=== PATIENT | female | born 1990 | race Caucasian/White ===

== ENCOUNTER 2017-07-27 15:49 | Emergency (ER) | payer OTHER ==
--- NOTE | 2017-07-27 16:21 | EDPHY ---
H & P Stated Complaint: RUQ ABD PAIN/N/V/D Source: Patient Exam Limitations: No limitations - Personal History LMP (Females 10-55): 15-21 Days Ago Current Tetanus/Diphtheria Vaccine: Unsure - Medical/Surgical History Hx Asthma: No Hx Chronic Respiratory Disease: No Hx Diabetes: No Hx Cardiac Disease: No Hx Renal Disease: No Hx Cirrhosis: No Hx Alcoholism: No Hx HIV/AIDS: No Hx Splenectomy or Spleen Trauma: No Other PMH: DENIES - Social History Smoking Status: Never smoked Time Seen by Provider: 07/27/17 16:20 HPI/ROS: HPI: This is a 26-year-old female who presents with Chief Complaint: RUQ ABD PAIN/N/V/D Location: Right upper quadrant and right lower quadrant abdomen Quality: Pain Duration: Since yesterday evening Signs and Symptoms: no fever, + nausea, + vomiting, no hematemesis, no blood in stool, no abdominal bloating, + diarrhea, no back pain, no urinary symptoms, no vaginal bleeding/discharge, no indigestion, no chest pain, no shortness of breath Timing: Acute, intermittent episodes Severity: Moderate Context: Patient has a history of indigestion for which she normally takes Tums presents to the emergency room with complaints of sudden onset of epigastric and right upper quadrant pain last night accompanied by burning up into her throat and nausea. She reports that this morning the right upper quadrant pain became constant with numerous bouts of vomiting of stomach contents and now has turned into bile colored liquid. She also complains of right lower quadrant pain. Nothing makes the symptoms better. Friend at bedside reports that she has been dealing with indigestion and nausea since April. Patient has not been able to keep any food or liquid down today. LMP 2-3 weeks ago. She did have 2 bouts of loose stool today; denies hematemesis Or blood in stool. She is not concerned about any food borne illness and no recent antibiotic use. Modifying Factors: None Comment: ROS: see HPI Constitutional: No fever, no chills, no weight loss Eyes: No blurred vision Respiratory: No shortness of breath, no cough Cardiovascular: No chest pain, no palpitations Gastrointestinal: + nausea, + vomiting, + diarrhea, no hematemesis, no blood in stool Genitourinary: No dysuria, no blood in urine Extremities: No myalgias, no edema Neurologic: No weakness, no numbness Skin: No rashes, no petechiae Hematologic: No bruising, no bleeding MEDICAL/SURGICAL/SOCIAL HISTORY: Medical history: Generally healthy. Does not take any regular medications. Surgical history: Denies Social history: Employed. CONSTITUTIONAL: Ill but nontoxic-appearing adult white female, awake and alert , no obvious distress HEENT: Atraumatic and normocephalic, PERRL, EOMI. Tympanic membranes clear. Oropharynx clear, no exudate and moist pink mucosa. Airway patent. No lymphadenopathy. No meningismus. Cardiovascular: Normal S1/S2, tachycardia, regular rhythm, without murmur rub or gallop. PULMONARY/CHEST: Symmetrical and nontender. Clear to auscultation bilaterally. Good air movement. No accessory muscle usage. ABDOMEN: Soft, nondistended, right upper quadrant and right lower quadrant tenderness, no rebound, no guarding, no peritoneal signs, no masses or organomegaly. No CVAT. EXTREMITIES: 2/2 pulses, strength 5/5, no deformities, no clubbing, no cyanosis or edema. NEUROLOGICAL: no focal neuro deficits. GCS 15. SKIN: Warm and dry, no erythema. no rash. Good capillary refill. (Cecelia Meza) Constitutional: Initial Vital Signs Temperature (C) 98.1 F 07/27/17 15:53 Heart Rate 112 H 07/27/17 15:53 Respiratory Rate 20 07/27/17 15:53 Blood Pressure 169/99 H 07/27/17 15:53 O2 Sat (%) 97 07/27/17 15:53 O2 Delivery Mode Room Air Allergies/Adverse Reactions: No Known Allergies Allergy (Unverified 07/27/17 15:52) Home Medications: Medication Instructions Recorded Adderall 10 MG (*) 07/27/17 Hydrocodone/Acetaminophen [[place] 1 each PO Q4-6PRN PRN #7 tablet 07/27/17 7.5-325 Tablet] Ondansetron Odt [Zofran Odt 4 mg 4 mg PO Q6 PRN #12 tab 07/27/17 (*)] Promethazine HCl [Phenergan 25mg 25 mg PO Q8 PRN #12 tab 07/27/17 (*)] Medical Decision Making - Diagnostics Imaging Results: Imaging Impressions Abdomen CT 07/27/17 16:24 Impression: 1. Normal CT abdomen and pelvis with contrast enhancement. 2. No CT evidence of appendicitis, abscess or bowel obstruction. Findings and recommendations discussed with Emergency Department physician, Dr. Cindy Mitchell at 1817 hour, 07/27/2017. Final report concurs with initial preliminary interpretation. Abdomen Ultrasound 07/27/17 16:24 Impression: No cholelithiasis or biliary ductal dilation. Findings and recommendations discussed with Emergency Department physician, Cecelia Meza PAC at 17:04 hour, 07/27/2017. Final report concurs with initial preliminary interpretation. ED Course/Re-evaluation: Labs, urinalysis, IV fluids, IV medications, CT abdomen and pelvis scan, right upper quadrant ultrasound ordered Suspect gastroenteritis Given 2 L normal saline, IV Zofran, IV Dilaudid upon arrival Vital signs show mild tachycardia but no fever. 1704: Called by radiologist who advised that right upper quadrant ultrasound shows no signs of acute cholecystitis/gallstones. 1723: Labs completely unremarkable. 1734: End of shift. Signed over to SHAHRZAD Leavitt pending CT A/P scan results and final disposition. This patient was seen under the supervision of my primary supervising physician. I evaluated care for this patient independently. (Cecelia Meza) Differential Diagnosis: Abdominal pain including but not limited to appendicitis, cholecystitis, gastritis and urinary tract infection. (Cecelia Meza) Other Provider: 5:35 p.m. I assumed care of the patient at this time. This was after discussing with Cecelia Meza PA-C. We discussed the patient's history of present illness, examination, work-up thus far. She is suspected gastroenteritis with the negative ultrasound. CT scan of the abdomen pelvis is pending at this time. I reviewed her laboratory studies. She has a very mild leukocytosis with no significant shift. Chemistry is unremarkable. Vital signs are within normal limits at this time. 6:[address] scan of the abdomen pelvis is unremarkable for any acute findings. I have examined the patient at this time. Her abdominal exam is benign. She has received 2 L IV fluid. Her symptoms have improved somewhat. She is not vomiting. She has had no diarrhea here in the emergency department. She has no bloody diarrhea. No recent travel, camping or stagnant water ingestion. We discussed the likelihood of gastroenteritis. We discuss controlling her symptoms with antiemetic prescriptions. We discussed clear liquid diet, advancing slowly as tolerated. She is comfortable this. In addition, I would like her to return to the emergency department 24 hr if she does not have resolution of her symptoms or sooner for any acute worsening as discussed. She is comfortable with this as well and discharged home stable condition. (Andrés Leavitt) - Data Points Laboratory Results: Laboratory Results 07/27/17 16:35 07/27/17 16:35 07/27/17 07/27/17 07/27/17 17:40 16:35 16:35 WBC RBC Hgb Hct MCV MCH MCHC RDW Plt Count MPV Neut % (Auto) Lymph % (Auto) Wirt % (Auto) Eos % (Auto) Baso % (Auto) Nucleat RBC Rel Count Absolute Neuts (auto) Absolute Lymphs (auto) Absolute Monos (auto) Absolute Eos (auto) Absolute Basos (auto) Absolute Nucleated RBC Immature Gran % Immature Gran # Sodium 142 mEq/L mEq/L (135-145) Potassium 4.5 mEq/L mEq/L (3.5-5.2) Chloride 106 mEq/L mEq/L (97-110) Carbon Dioxide 20 mEq/l L mEq/l (22-31) Anion Gap 16 mEq/L mEq/L (8-16) BUN 9 mg/dL mg/dL (7-23) Creatinine 0.8 mg/dL mg/dL (0.6-1.0) Estimated GFR > 60 Glucose 72 mg/dL mg/dL (70-100) Calcium 10.1 mg/dL mg/dL (8.5-10.4) Total Bilirubin 0.7 mg/dL mg/dL (0.1-1.4) Conjugated Bilirubin 0.5 mg/dL mg/dL (0.0-0.5) Unconjugated Bilirubin 0.2 mg/dL mg/dL (0.0-1.1) AST 22 IU/L IU/L (14-46) ALT 30 IU/L IU/L (9-52) Alkaline Phosphatase 76 IU/L IU/L (38-126) Total Protein 7.4 g/dL g/dL (6.3-8.2) Albumin 4.6 g/dL g/dL (3.5-5.0) Lipase 118 IU/L IU/L (23-300) Beta HCG, Qual NEGATIVE Urine Color YELLOW Urine Appearance CLEAR Urine pH 5.0 (5.0-7.5) Ur Specific [place] 1.013 (1.002-1.030) Urine Protein NEGATIVE (NEGATIVE) Urine Ketones TRACE H (NEGATIVE) Urine Blood NEGATIVE (NEGATIVE) Urine Nitrate NEGATIVE (NEGATIVE) Urine Bilirubin NEGATIVE (NEGATIVE) Urine Urobilinogen NEGATIVE EU EU (0.2-1.0) Ur Leukocyte Esterase NEGATIVE (NEGATIVE) Urine Glucose NEGATIVE (NEGATIVE) 07/27/17 16:35 WBC 9.97 10^3/uL H 10^3/uL (3.80-9.50) RBC 4.72 10^6/uL 10^6/uL (4.18-5.33) Hgb 14.0 g/dL g/dL (12.6-16.3) Hct 41.2 % % (38.0-47.0) MCV 87.3 fL fL (81.5-99.8) MCH 29.7 pg pg (27.9-34.1) MCHC 34.0 g/dL g/dL (32.4-36.7) RDW 12.9 % % (11.5-15.2) Plt Count 398 10^3/uL 10^3/uL (150-400) MPV 9.7 fL fL (8.7-11.7) Neut % (Auto) 65.7 % % (39.3-74.2) Lymph % (Auto) 26.9 % % (15.0-45.0) Wirt % (Auto) 5.8 % % (4.5-13.0) Eos % (Auto) 0.8 % % (0.6-7.6) Baso % (Auto) 0.4 % % (0.3-1.7) Nucleat RBC Rel Count 0.0 % % (0.0-0.2) Absolute Neuts (auto) 6.55 10^3/uL H 10^3/uL (1.70-6.50) Absolute Lymphs (auto) 2.68 10^3/uL 10^3/uL (1.00-3.00) Absolute Monos (auto) 0.58 10^3/uL 10^3/uL (0.30-0.80) Absolute Eos (auto) 0.08 10^3/uL 10^3/uL (0.03-0.40) Absolute Basos (auto) 0.04 10^3/uL 10^3/uL (0.02-0.10) Absolute Nucleated RBC 0.00 10^3/uL 10^3/uL (0-0.01) Immature Gran % 0.4 % % (0.0-1.1) Immature Gran # 0.04 10^3/uL 10^3/uL (0.00-0.10) Sodium Potassium Chloride Carbon Dioxide Anion Gap BUN Creatinine Estimated GFR Glucose Calcium Total Bilirubin Conjugated Bilirubin Unconjugated Bilirubin AST ALT Alkaline Phosphatase Total Protein Albumin Lipase Beta HCG, Qual Urine Color Urine Appearance Urine pH Ur Specific [place] Urine Protein Urine Ketones Urine Blood Urine Nitrate Urine Bilirubin Urine Urobilinogen Ur Leukocyte Esterase Urine Glucose Medications Given: Discontinued Medications Hydromorphone HCl (Dilaudid) 0.5 mg IVP EDNOW ONE Stop: 07/27/17 16:25 Last Admin: 07/27/17 16:36 Dose: 0.5 mg Sodium Chloride (Ns) 1,000 mls @ 0 mls/hr IV EDNOW ONE; Wide Open PRN Reason: Protocol Stop: 07/27/17 16:25 Last Admin: 07/27/17 16:36 Dose: 1,000 mls Sodium Chloride (Ns) 1,000 mls @ 0 mls/hr IV EDNOW ONE; Wide Open PRN Reason: Protocol Stop: 07/27/17 16:25 Last Admin: 07/27/17 16:37 Dose: 1,000 mls Ondansetron HCl (Zofran) 4 mg IVP EDNOW ONE Stop: 07/27/17 16:25 Last Admin: 07/27/17 16:36 Dose: 4 mg Departure - Departure Disposition: Home, Routine, Self-Care Clinical Impression: Gastroenteritis GERD (gastroesophageal reflux disease) Qualifiers: Esophagitis presence: without esophagitis Qualified Code(s): K21.9 - Gastro- esophageal reflux disease without esophagitis Condition: Good Instructions: Diet for Stomach Ulcers and Gastritis (ED), Gastroenteritis (ED) , Gastroesophageal Reflux Disease (ED) Additional Instructions: Consume a minimum of 8-10 glasses of water or electrolyte fluid replacement drinks that include Gatorade, Powerade, Pedialyte. Eat a bland diet for the next 48 hours and then slowly advance as tolerated. Take Zofran 1 tab every 4 hours as needed for nausea, vomiting. Return to the Emergency Room if symptoms do not resolve in the next 48-72 hours , you spike a fever > 102 F, or experience intractable abdominal pain/nausea/ vomiting. Referrals: Dari Licona [Primary Care Provider] - As per Instructions Stand Alone Forms: Work Excuse Prescriptions: Hydrocodone/Acetaminophen [[place] 7.5-325 Tablet] 1 each PO Q4-6PRN PRN #7 tablet PRN Reason: Pain, Moderate Ondansetron Odt [Zofran Odt 4 mg (*)] 4 mg PO Q6 PRN #12 tab PRN Reason: Nausea/Vomiting, Use 1st Promethazine HCl [Phenergan 25mg (*)] 25 mg PO Q8 PRN #12 tab PRN Reason: Nausea/Vomiting, Use 1st
[2017-07-27] MEDS ORDERED: NS 1,000 ML IV ONE ×2 (16:24)
[2017-07-27] MEDS ORDERED: HYDROmorphONE/DILAUDID 2 MG/ML INJ IVP ONE (16:24)
[2017-07-27] MEDS ORDERED: ONDANSETRON 4 MG/2 ML VIAL IVP ONE (16:24)
[2017-07-27] MEDS ORDERED: ONDANSETRON 4 MG/2 ML VIAL ONE (16:46)
[2017-07-27 17:03] LABS: PLATELET COUNT 398 10^3/uL (150-400)
[2017-07-27] MEDS ORDERED: IOPAMIDOL (ISOVUE-300) 100 ML BTL ONE (17:43)
[2017-07-27 18:53] VITALS: BP 123/60; PULSE 81; RESP 16; TEMP 98.2; O2SAT 96
== END 2017-07-27 18:52 | disposition home or self-care (01) ==
DX: K52.9 Noninfective gastroenteritis and colitis, unspecified (principal); K21.9 Gastro-esophageal reflux disease without esophagitis; E86.9 Volume depletion, unspecified
CPT/HCPCS: 96374; J1170; J2405; Q9967

== ENCOUNTER 2018-07-26 10:11 | Emergency (ER) | payer OTHER ==
[2018-07-26 10:26] VITALS: BP 149/84
--- NOTE | 2018-07-26 10:42 | EDPHY ---
H & P Stated Complaint: Right calf pain, red hot swollen calf Time Seen by Provider: 07/26/18 10:37 HPI/ROS: CHIEF COMPLAINT: Right calf pain HISTORY OF PRESENT ILLNESS: Patient is a 27-year-old healthy female who comes to the emergency department complaining of right calf pain and swelling. She states that it began hurting on the drive home from a ski trip on Monday. It is become gradually more painful over time. No fevers. No warmth or erythema. No trauma. She states that she did sprained her ankle slightly during the trip but has been able to ambulate without difficulty. No history of blood clotting disorders. Severity: Moderate Modifying factors: None REVIEW OF SYSTEMS: Constitutional: denies: chills, fever, recent illness, recent injury EENTM: denies: blurred vision, double vision, nose congestion Respiratory: denies: cough, shortness of breath Cardiac: denies: chest pain, irregular heart rate, lightheadedness, palpitations Gastrointestinal/Abdominal: denies: abdominal pain, diarrhea, nausea, vomiting, blood streaked stools Genitourinary: denies: dysuria, frequency, hematuria, pain Musculoskeletal: See HPI Skin: denies: lesions, rash, jaundice, bruising Neurological: denies: headache, numbness, paresthesia, tingling, dizziness, weakness Hematologic/Lymphatic: denies: blood clots, easy bleeding, easy bruising Immunologic/allergic: denies: HIV/AIDS, transplant 10 systems reviewed and negative except as noted EXAM: GENERAL: Well-appearing, well-nourished and in no acute distress. HEAD: Atraumatic, normocephalic. EYES: Pupils equal round and reactive to light, extraocular movements intact, sclera anicteric, conjunctiva are normal. ENT: TMs normal, nares patent, oropharynx clear without exudates. Moist mucous membranes. NECK: Normal range of motion, supple without lymphadenopathy or JVD. LUNGS: Breath sounds clear to auscultation bilaterally and equal. No wheezes rales or rhonchi. HEART: Regular rate and rhythm without murmurs, rubs or gallops. ABDOMEN: Soft, nontender, normoactive bowel sounds. No guarding, no rebound. No masses appreciated. BACK: No CVA tenderness, no spinal tenderness, step-offs or deformities EXTREMITIES: Right calf tenderness, negative Homans. Normal pulses and sensation. No visible swelling or edema. No thigh pain. No palpable cords. NEUROLOGICAL: Cranial nerves II through XII grossly intact. Normal speech, normal gait. 5/5 strength, normal movement in all extremities, normal sensation , normal reflexes PSYCH: Normal mood, normal affect. SKIN: Warm, dry, normal turgor, no visible rashes or lesions. Source: Patient Exam Limitations: No limitations - Personal History LMP (Females 10-55): 22-28 Days Ago Current Tetanus/Diphtheria Vaccine: No Current Tetanus Diphtheria and Acellular Pertussis (TDAP): No - Medical/Surgical History Hx Asthma: Yes Hx Chronic Respiratory Disease: No Hx Diabetes: No Hx Cardiac Disease: No Hx Renal Disease: No Hx Cirrhosis: No Hx Alcoholism: No Hx HIV/AIDS: No Hx Splenectomy or Spleen Trauma: No Other PMH: DENIES - Family History Significant Family History: No pertinent family hx - Social History Smoking Status: Never smoked Alcohol Use: None Constitutional: Initial Vital Signs Temperature (C) 37.2 C 07/26/18 10:16 Heart Rate 92 07/26/18 10:16 Respiratory Rate 17 07/26/18 10:16 Blood Pressure 149/84 H 07/26/18 10:16 O2 Sat (%) 98 07/26/18 10:16 O2 Delivery Mode Room Air Allergies/Adverse Reactions: No Known Allergies Allergy (Unverified 07/27/17 15:52) Home Medications: Medication Instructions Recorded Adderall 10 MG (*) 07/27/17 Hydrocodone/Acetaminophen [[place] 1 each PO Q4-6PRN PRN #7 tablet 07/27/17 7.5-325 Tablet] Ondansetron Odt [Zofran Odt 4 mg 4 mg PO Q6 PRN #12 tab 07/27/17 (*)] Promethazine HCl [Phenergan 25mg 25 mg PO Q8 PRN #12 tab 07/27/17 (*)] Medical Decision Making - Diagnostics Imaging: Discussed imaging studies w/ call manager Radiologist ED Course/Re-evaluation: 11:20 a.m. we discussed the ultrasound results. Patient is reassured. We discussed continued care and management of her pain and symptoms. I encouraged rest and ice. She is happy with this plan and feels safe going home. Discussed indications for returning Differential Diagnosis: Partial list of the Differential diagnosis considered include but were not limited to; DVT, contusion, muscle strain and although unlikely based on the history and physical exam, I also considered neuropathy, ischemia, infection. I discussed these differential diagnoses and the plan with the patient as well as the usual and expected course. The patient understands that the diagnosis is provisional and that in medicine we are not always correct and that further workup is often warranted. Usual and customary warnings were given. All of the patient's questions were answered. The patient was instructed to return to the emergency department should the symptoms at all worsen or return, otherwise to followup with the physician as we discussed. Departure - Departure Disposition: Home, Routine, Self-Care Clinical Impression: Right calf pain Condition: Fair Instructions: Leg Pain (ED) Referrals: NONE *PRIMARY CARE P,. [Primary Care Provider] - As per Instructions Becky Peoples MD [Medical Doctor] - 2-3 days, if not improved
== END 2018-07-26 11:31 | disposition home or self-care (01) ==
DX: M79.661 Pain in right lower leg (principal); M79.89 Other specified soft tissue disorders